=== PATIENT | male | born 1970 | race African-American/Black ===

== ENCOUNTER 2021-07-21 13:02 | Emergency (ER) | payer OTHER ==
[~2021-07-21] VITALS: Ht 175.3 cm; Wt 110.0 kg
[~2021-07-21 13:02] MED LIST: DOCU10CA PO; LORT5TAB PO; MOM30SS PO; PERC5TAB12 PO; TYLE325T5 PO; [UNRECOGNIZED DRUG - CODE] PO; [UNRECOGNIZED DRUG - CODE] TOP
[2021-07-21 15:11] LABS: BASO % 0.4 % (0.0-1.0); EOS # 0.2 10^3/uL (0.0-0.5); EOS % 2.1 % (0.0-3.0); HEMATOCRIT 43.7 % (42.0-52.0); HEMOGLOBIN 14.8 g/dl (13.5-17.5); LYMPH # 2.6 10^3/uL (1.5-5.0); LYMPH % 26.9 % (24.0-44.0); MEAN CORPUSCULAR HEMOGLOBIN 31.4 pg (27.0-33.0); MEAN CORPUSCULAR HGB CONC 33.9 g/dl (32.0-36.5); MEAN CORPUSCULAR VOLUME 92.8 fl (80.0-96.0); MONO # 0.8 10^3/uL (0.0-0.8); NEUTROPHILS # 6.1 10^3/uL (1.5-8.5); NEUTROPHILS % 62.4 % (36.0-66.0); PLATELET COUNT, AUTOMATED 193 10^3/uL (150-450); RED BLOOD COUNT 4.71 10^6/uL (4.30-6.10); WHITE BLOOD COUNT 9.7 10^3/uL (4.0-10.0)
[2021-07-21 15:44] LABS: ALBUMIN 3.9 GM/DL (3.2-5.2); ALT/SGPT 54 U/L (12-78); BILIRUBIN,DIRECT 0.2 MG/DL (0.0-0.2); BILIRUBIN,TOTAL 1.1 MG/DL (0.2-1.0); BLOOD UREA NITROGEN 9 MG/DL (7-18); CALCIUM LEVEL 9.1 MG/DL (8.5-10.1); CARBON DIOXIDE LEVEL 31 MEQ/L (21-32); CHLORIDE LEVEL 107 MEQ/L (98-107); CREATININE FOR GFR 1.17 MG/DL (0.70-1.30); GLOMERULAR FILTRATION RATE > 60.0 (>60); GLUCOSE, FASTING 91 MG/DL (70-100); LIPASE 128 U/L (73-393); POTASSIUM SERUM 3.9 MEQ/L (3.5-5.1); SODIUM LEVEL 140 MEQ/L (136-145); TOTAL PROTEIN 7.6 GM/DL (6.4-8.2)
[2021-07-21] MEDS ORDERED: ISOVUE-370 76% 100ML VIAL As Ordered ONE (16:30)
[2021-07-21] MEDS: ONDANSETRON 4MG/2ML VIAL IV ONE (16:38)
[2021-07-21] MEDS: KETOROLAC 30 MG/ML 1ML VIAL IV ONE (16:38)
[2021-07-21] MEDS ORDERED: RA M1.74 PO (18:24)
[2021-07-21] MEDS ORDERED: MIRA3350 PO (18:24)
[2021-07-21 18:52] VITALS: BP 142/102
== END 2021-07-21 19:05 | disposition home or self-care (01) ==
LOC: M ED 13:02
DX: K59.00 Constipation, unspecified (principal); I10 Essential (primary) hypertension; E78.5 Hyperlipidemia, unspecified; F17.210 Nicotine dependence, cigarettes, uncomplicated; Z88.8 Allergy status to other drugs, medicaments and biological substances; Z98.890 Other specified postprocedural states
CPT/HCPCS: 36415; 74177; 80048; 80076; 81001; 83690; 85025; 99284; J1885; J2405; Q9967

== ENCOUNTER 2021-08-14 08:51 | Emergency (ER) | payer OTHER ==
[~2021-08-14] VITALS: Ht 175.3 cm; Wt 102.6 kg
[~2021-08-14 08:51] MED LIST changes: +MIRA3350 PO; +RA M1.74 PO
[2021-08-14 10:42] LABS: RSV AMPLIFICATION NEGATIVE (NEGATIVE)
[2021-08-14] MEDS ORDERED: ALBU8.5H INH (12:08)
[2021-08-14 12:10] VITALS: BP 148/66
== END 2021-08-14 12:22 | disposition home or self-care (01) ==
LOC: M ED 08:51
DX: J06.9 Acute upper respiratory infection, unspecified (principal); I10 Essential (primary) hypertension; E78.5 Hyperlipidemia, unspecified; J45.909 Unspecified asthma, uncomplicated; F17.200 Nicotine dependence, unspecified, uncomplicated; F10.10 Alcohol abuse, uncomplicated; Z88.6 Allergy status to analgesic agent; Z91.51 Personal history of suicidal behavior; Z79.899 Other long term (current) drug therapy

== ENCOUNTER 2021-12-18 08:04 | Emergency (ER) | payer OTHER ==
[~2021-12-18] VITALS: Ht 175.3 cm; Wt 100.7 kg
[2021-12-18 08:04] VITALS: BP 150/92
[~2021-12-18 08:04] MED LIST changes: +ALBU8.5H INH
[2021-12-18 08:41] LABS: BASO % 0.2 % (0.0-1.0); EOS # 0.1 10^3/uL (0.0-0.5); EOS % 1.1 % (0.0-3.0); HEMATOCRIT 42.2 % (42.0-52.0); HEMOGLOBIN 14.4 g/dl (13.5-17.5); LYMPH # 2.1 10^3/uL (1.5-5.0); LYMPH % 17.2 % (24.0-44.0); MEAN CORPUSCULAR HEMOGLOBIN 32.2 pg (27.0-33.0); MEAN CORPUSCULAR HGB CONC 34.1 g/dl (32.0-36.5); MEAN CORPUSCULAR VOLUME 94.4 fl (80.0-96.0); MONO # 1.1 10^3/uL (0.0-0.8); MONO % 8.7 % (2.0-8.0); NEUTROPHILS % 72.6 % (36.0-66.0); PLATELET COUNT, AUTOMATED 168 10^3/uL (150-450); RED BLOOD COUNT 4.47 10^6/uL (4.30-6.10); WHITE BLOOD COUNT 12.4 10^3/uL (4.0-10.0)
[2021-12-18 09:19] LABS: ALBUMIN 3.5 GM/DL (3.2-5.2); ALT/SGPT 72 U/L (12-78); BILIRUBIN,DIRECT 0.4 MG/DL (0.0-0.2); BILIRUBIN,TOTAL 1.8 MG/DL (0.2-1.0); BLOOD UREA NITROGEN 9 MG/DL (7-18); CALCIUM LEVEL 9.2 MG/DL (8.5-10.1); CARBON DIOXIDE LEVEL 29 MEQ/L (21-32); CHLORIDE LEVEL 105 MEQ/L (98-107); CREATININE FOR GFR 1.02 MG/DL (0.70-1.30); GLOMERULAR FILTRATION RATE > 60.0 (>60); GLUCOSE, FASTING 115 MG/DL (70-100); LIPASE 111 U/L (73-393); POTASSIUM SERUM 3.6 MEQ/L (3.5-5.1); SODIUM LEVEL 140 MEQ/L (136-145); TOTAL PROTEIN 7.1 GM/DL (6.4-8.2)
[2021-12-18] MEDS ORDERED: ISOVUE-370 76% 100ML VIAL As Ordered ONE (09:34)
[2021-12-18] MEDS ORDERED: NS 1,000 ML IV ONE (09:35)
[2021-12-18] MEDS ORDERED: ONDANSETRON 4MG ORAL DISINTEGRATING TAB PO ONE (10:30)
[2021-12-18] MEDS ORDERED: CIPROFLOXACIN 500MG TABLET PO ONE (10:30)
[2021-12-18] MEDS ORDERED: metroNIDAZOLE (FLAGYL) 500MG TABLET PO ONE (10:30)
[2021-12-18] MEDS ORDERED: METR-265 PO (10:32)
[2021-12-18] MEDS ORDERED: CIPR-249 PO (10:32)
[2021-12-18] MEDS ORDERED: ONDA4TAB6 PO (10:33)
== END 2021-12-18 10:56 | disposition home or self-care (01) ==
LOC: M ED 08:04
DX: K57.32 Diverticulitis of large intestine without perforation or abscess without bleeding (principal); I10 Essential (primary) hypertension; F32.A Depression, unspecified; E78.00 Pure hypercholesterolemia, unspecified; G43.909 Migraine, unspecified, not intractable, without status migrainosus; F17.200 Nicotine dependence, unspecified, uncomplicated; F10.10 Alcohol abuse, uncomplicated; Z88.6 Allergy status to analgesic agent; Z79.51 Long term (current) use of inhaled steroids; Z79.899 Other long term (current) drug therapy
CPT/HCPCS: 36415; 74177; 80048; 80076; 83690; 85025; 99284; Q9967